=== PATIENT | male | born 1955 | race Caucasian/White ===

== ENCOUNTER 2019-09-12 15:42 | Emergency (ER) | payer OTHER ==
[~2019-09-12] VITALS: Ht 182.9 cm; Wt 93.2 kg
[2019-09-12 15:53] VITALS: Ht 182.9 cm; Wt 93.2 kg
[2019-09-12] MEDS ORDERED: PROZAC10 MG PO (15:55)
[2019-09-12] MEDS ORDERED: GLUCOPHAGE1000 MG PO (15:56)
[2019-09-12] MEDS ORDERED: METHOCARBAMOL500 MG PO (15:56)
[2019-09-12] MEDS ORDERED: PHENERGAN25 M1 PO (15:57)
[2019-09-12] MEDS ORDERED: PAXIL20 MG PO (15:57)
[2019-09-12] MEDS ORDERED: REMERON15 MG PO (15:57)
[2019-09-12] MEDS ORDERED: CRESTOR40 MG PO (15:58)
[2019-09-12] MEDS ORDERED: PROPRANOLOL HCL20 MG PO (15:58)
[2019-09-12] MEDS ORDERED: GLUCOTROL XL 1010 MG PO (15:58)
[2019-09-12] MEDS ORDERED: SCOPOLAMINE1 EACH TRANSDERM (15:58)
[2019-09-12] MEDS ORDERED: ASPIRIN81 MG PO (15:59)
[2019-09-12 16:16] LABS: BASOPHILS 0.2 % (0-2); EOSINOPHILS 0.9 % (0-7); HEMATOCRIT 41.4 % (42.0-54.0); IMMATURE GRANULOCYTES 0.3 % (0-5); MCH 32.4 pg (26.0-34.0); MCHC 33.8 g/dL (31.0-37.0); MCV 95.8 fL (80.0-100.0); MEAN PLATELET VOLUME 8.9 fL (7.4-10.4); MONOCYTES 5.2 % (2-11); NEUTROPHILS 52.4 % (40-80); PLATELET COUNT 255 10x3/uL (130-400); RBC 4.32 10x6/uL (4.20-6.10); WBC 10.5 10x3/uL (4.8-10.8)
[2019-09-12 16:19] LABS: CALC OSMOLALITY 277 mosm/kg (275-300); CALCIUM 9.1 mg/dL (8.5-10.1); CARBON DIOXIDE 28.4 mmol/L (21.0-32.0); CHLORIDE - SERUM 100 mmol/L (98-107); CREATININE - SERUM 1.5 mg/dL (0.6-1.3); GLUCOSE 161 mg/dL (74-106); POTASSIUM - SERUM 4.3 mmol/L (3.5-5.1); SODIUM 137 mmol/L (136-145); UREA NITROGEN 16 mg/dL (7-18); eGFR NON AFRICAN AMERICAN 50 mL/min (90-120)
[2019-09-12 16:20] LABS: INR 1.05 (0.85-1.17); PROTIME 13.7 SECONDS (11.6-15.0)
[2019-09-12 16:21] LABS: APTT 32.1 SECONDS (22.8-39.4)
[2019-09-12 16:35] LABS: ALBUMIN 3.7 g/dL (3.4-5.0); ALKALINE PHOSPHATASE 76 U/L (30-120); ALT (SGPT) 21 U/L (10-68); BILIRUBIN - TOTAL 0.31 mg/dL (0.2-1.3); CKMB 0.7 U/L (0.0-3.6); CREATINE KINASE 54 UL (21-232); MAGNESIUM - SERUM 1.7 mg/dL (1.8-2.4); PROTEIN - SERUM 8.1 g/dL (6.4-8.2)
[2019-09-12 16:37] LABS: TROPONIN-I < 0.017 ng/mL (0.000-0.060)
[2019-09-12 18:02] VITALS: BP 120/76
== END 2019-09-12 20:05 | disposition other institution (70) ==
LOC: D.ER 15:42
PROVIDERS: Family Medicine
DX: R07.9 Chest pain, unspecified (principal); Z86.73 Personal history of transient ischemic attack (TIA), and cerebral infarction without residual deficits; I10 Essential (primary) hypertension; E78.5 Hyperlipidemia, unspecified